=== PATIENT | male | born 1985 | race Caucasian/White ===

== ENCOUNTER → 2019-10-01 09:57 | Outpatient (CLI) | payer OTHER, SELFPAY ==
[2019-10-01 12:06] LABS: Coronavirus 19 IgG Antibody Negative (Negative); Coronavirus 19 IgM Antibody Negative (Negative)
== END ==
PROVIDERS: PCP Internal Medicine; Visit Provider Internal Medicine Gastroenterology
DX: Z01.818 Encounter for other preprocedural examination (principal)
CPT/HCPCS: 36415; 86328

== ENCOUNTER 2019-10-02 10:21 | Day surgery (SDC) | payer OTHER, SELFPAY ==
[2019-09-29 13:54] VITALS: BMI 38.0
[2019-10-02] VITALS (9 sets, daily range): BP systolic 95–134; BP diastolic 59–85; PULSE 64–94; RESP 16–18; TEMP 36.5–36.9; O2SAT 95–100
--- NOTE | 2019-10-02 11:59 | HMH.ANESCL ---
[facility] Anesthesia Checklist - Patient Identification Patient Identification: Arm Band - Structural Data Admitted From: Home Planned Operative Procedure/s: colonoscopy Consent for Planned Operative Procedure(s) Verified: Yes Verified Documents: Surgical Consent, History and Physical - NPO Status Verified Time NPO: 00:00 - Additional verifications Anesthesia Reactions: No - Airway Assessment C-Spine Mobility Assessed: Yes (mp3) TMJ Mobility Assessed: Yes Dentition: Good Dentition - Neurological Assessment Level of Consciousness: Awake, Alert - Anesthesia Plan Anesthesia Risk discussed: Yes Anesthesia Plan: Verified ASA Class: II Anesthesia Type: MAC [facility] History I have reviewed the patient's past medical history: Yes Medical History: Reports:: Hypertension Denies:: Cancer, Diabetes Mellitus Type 1, Diabetes Mellitus Type 2, Internal Pacemaker, MRSA, Seizures *Have you ever received a pneumonia vaccine?: No *Have you received a flu vaccine this season?: No Anesthesia experience/problems:: nac Other Surgeries: Yes: Other. No: Pacemaker Amputation: No Fractures: No - *Social History Last grade of school completed: High school graduate Smoking Status: Never smoker Alcohol Intake: current Alcohol Intake Frequency:: a few times a week Substance Use Type: denies use *Occupational Status:: employed Housing: house Household Members: spouse, family *Travel in the last 8 weeks: None Family Hx:: Cancer
--- NOTE | 2019-10-02 12:18 | HMH.PROC ---
[facility] Procedure Note Procedure Note:: Colonoscopy Procedure Report: Colonoscopy with cold snare polypectomy and cold biopsies Endoscopist: Bharat Aiken II, MD Referring physician: Mckay Villatoro MD Date of Procedure: October 02, 2019 Equipment: Olympus 180 variable stiffness pediatric colonoscope Sedation: MAC sedation Indication: Mr. Wadsworth is a 33-year-old gentleman who has had 3 bouts of diverticulitis over the last 6 to 8 months. These are occurring every 2 or 3 months. This will start out with symptomatic pain and mid right lower quadrant but radiate into the left lower quadrant. He reports no fever. He often does get diarrhea with each bout of diverticulitis. He did have some bright red rectal bleeding at the time of his last bout. He did have a CAT scan of the abdomen on August 12, 2019 and there was evidence of acute diverticulitis involving the descending colon. There was no complicated diverticulitis (no abscess, free fluid or pneumoperitoneum). There was a small inguinal hernia. There was some left renal cortical scarring. The patient does state that his father had colon cancer at the age of 58. This is his first colonoscopy. Procedure: Prior to the procedure, a history and physical exam was performed, and patient's medications and allergies were reviewed. The risks, benefits and alternatives of the sedation and procedure were discussed with the patient. All questions were answered and informed consent was obtained. The patient was brought to the procedure room. Patient identification and proposed procedure were verified by the physician and the nurse. The patient was placed in a left lateral decubitus position and the scope was passed under direct vision. Throughout the procedure, the patient's blood pressure, pulse, and oxygen saturations were monitored continuously. The colonoscopy was accomplished without difficulty. The patient tolerated the procedure well. Findings: On digital rectal examination there was normal rectal tone. There were no external hemorrhoids. The colonoscope was introduced through the anal canal to the rectum and advanced to the cecum. The ileocecal valve and appendiceal orifice were identified. The scope was advanced a short distance into the ileum. There was some ileal patchy aphthous erosions and edema and biopsies were taken from the ileum. The scope was then withdrawn into the colon. The cecum and ascending colon were grossly normal. There was a 5 mm polyp in the transverse colon removed via cold snare polypectomy. There were scattered diverticuli throughout the colon but more predominantly in the descending and sigmoid colon (LEFT colon). There was some haustral edema in the descending/sigmoid colon suggestive of mild chronic diverticulitis. The rectum itself was normal. Upon retroflexion within the rectum there were grade 1-2 internal hemorrhoids. The preparation was excellent throughout with [place] Preparation Score of 9. The cecal time was 12 minutes. Impression: 1. Transverse colon polyp 2. Pandiverticulosis with evidence of mild chronic left-sided diverticulitis 3. Grade 1-2 internal hemorrhoids 4. Acute/chronic ileitis Plan: I will follow-up the polyp histology and biopsies. I would recommend surveillance colonoscopy every 5 years based upon his family history and the present adenomatous colon polyp. I do feel that the patient has uncomplicated diverticulitis but he has had 3 bouts of diverticulitis in less than a year. We will discuss need for surgery. I would strongly encourage dietary measures and fiber bulk supplementation on a maintenance basis ([place]).
== END 2019-10-02 13:20 | disposition home or self-care (01) ==
PROVIDERS: PCP Internal Medicine; Visit Provider Internal Medicine Gastroenterology
PROC: 0DJD8ZZ Inspection of Lower Intestinal Tract, Via Natural or Artificial Opening Endoscopic (ICD-10-PCS; CPT 45378; principal; 2019-10-02 11:00)
DX: K63.5 Polyp of colon (principal); K57.92 Diverticulitis of intestine, part unspecified, without perforation or abscess without bleeding; K57.30 Diverticulosis of large intestine without perforation or abscess without bleeding; K64.0 First degree hemorrhoids; K52.89 Other specified noninfective gastroenteritis and colitis; Z80.0 Family history of malignant neoplasm of digestive organs; I10 Essential (primary) hypertension; Z87.39 Personal history of other diseases of the musculoskeletal system and connective tissue; Z79.899 Other long term (current) drug therapy
CPT/HCPCS: 45385; 45380

== ENCOUNTER 2024-12-03 06:21 | Day surgery (SDC) | payer BC, SELFPAY ==
[2024-11-27 10:12] VITALS: BMI 46.6
--- NOTE | 2024-12-01 17:13 | EXP.HP ---
History of Present Illness *Admission Date: 12/03/24 *Reason for visit:: Personal history of adenomatous colon polyps and family history of colon ca *History of present illness: Mr. Wadsworth is a 39-year-old gentleman who is here for screening/surveillance colonoscopy secondary to a personal history of an adenomatous colon polyp (transverse colon) identified and removed at the time of his colonoscopy in September 2019. The patient's father had colon cancer at the age of 58. He has had uncomplicated diverticulitis in the past. The examination is deemed medically necessary for screening/surveillance colonoscopy. The patient has been seen, interviewed and examined prior to the procedure by both myself and the anesthesia provider. [facility] Disclaimer: The information contained in this section may have been updated after the patient was seen, as this information can be updated by other users. Medical History Diverticulosis Crohn's disease Abnormal colonoscopy Hypertension Surgical History H/O neck surgery Family History Father Colon cancer Family history of diabetes mellitus type II Mother Family history of cancer Family/Other Family history of glaucoma Grandfather Leukemia Social History (Updated 12/03/24 @ 07:06 by Ericka Hutton RN) Smoking Status: Never smoker alcohol intake: current alcohol intake frequency: a few times a week substance use type: denies use current occupational status: employed Travel in the last 8 weeks?: None household members: spouse and family housing: house current occupation: [employer] caffeine: Yes Have you lived/traveled outside [place] in past 30 days?: No Contact w/someone who lives/traveled outside US past 30 days?: No Exposure to someone with infectious disease in past 14 days?: No Do you have a fever (greater than 100.4 F or 38 C)?: No Have you tested positive for COVID-19?: No Exposed to someone with COVID-19 in past 14 days?: No Do you have a sore throat?: No Do you have a cough?: No Do you have any weakness?: No Are you experiencing any nausea/vomitting?: No Do you have any diarrhea?: No Are you experiencing any unusual bleeding?: No Do you have any muscle aches/pain?: No Do you have any abdominal pain?: No Are you experiencing loss of taste or smell?: No Other Medical History Have you received the Flu Vaccine for this season: No Have you received the Pneumonia Vaccine: No Review of Systems Review of Systems Review of systems (narrative): Negative *Cardiovascular Comments: Negative *Gastrointestinal Comments: Negative *Genitourinary Comments: Negative *Musculoskeletal Comments: Negative *Neurologic Comments: Negative Meds Home Medications and Allergies Home Medications ?Medication ?Instructions ?Recorded ?Confirmed ?Type sodium,potassium,mag sulfates 17.5 See Rx Instructions PO .COMPLEX 11/19/24 12/03/24 Rx gram-3.13 gram-1.6 gram oral soln #354 mL (Suprep Bowel Prep Kit) ciprofloxacin HCl 500 mg tablet 500 mg PO BID 12/01/24 12/03/24 History (Cipro) nebivolol 10 mg tablet 10 mg PO DAILY 12/01/24 12/03/24 History testosterone 1.62 % (20.25 mg/1.25 2 packet transdermal DAILY 12/01/24 12/03/24 History gram) transdermal gel packet New Prescriptions to Start Prescriptions: Allergies Allergy/AdvReac Type Severity Reaction Status Date / Time celecoxib (From Celebrex) Allergy Nausea Verified 12/03/24 07:03 Exam *Routine HEENT Exam Head: Present normocephalic Eye: Present EOMI and PERRL ENT: Present mucous membranes moist *Routine Neck Exam Neck: Present supple *Routine Respiratory Exam Respiratory: Present CTA bilaterally *Routine Cardiovascular Exam Cardiovascular: Present RRR *Routine Abdominal Exam Abdominal: Present soft and normoactive bowel sounds; Absent tenderness *Routine Rectal Exam Rectal:: deferred *Routine Genitalia Exam Genitalia:: deferred *Routine Extremities Exam Extremities: Absent cyanosis, clubbing or edema *Routine Skin Exam Skin: Present warm; Absent rash *Routine Neurological Exam Neurological: Present alert and oriented X3 Assessment and Plan *Assessment and plan (1) Personal history of adenomatous and serrated colon polyps: Status: Acute Category: Medical Code(s): Z86.0101 - Personal history of adenomatous and serrated colon polyps (2) Family history of colon cancer in father: Status: Acute Category: Medical Code(s): Z80.0 - Family history of malignant neoplasm of digestive organs Plan A/P: 1. Personal history of adenomatous colon polyp and family history of colon cancer (father) is the preprocedural diagnosis. The patient will be anesthetized/sedated using MAC sedation. The patient has been seen and examined. Cardiac and lung assessment prior to the examination is stable. Proceed with planned screening/surveillance colonoscopy.
[2024-12-03 07:05] VITALS: BP 161/91; PULSE 55; RESP 16; TEMP 36.2; O2SAT 97
[2024-12-03] MEDS: LACTATED RINGERS 1000ML 1,000 ML 50 ML IV (07:13)
--- NOTE | 2024-12-03 07:18 | EXP.ANES.CKL ---
[facility] Disclaimer: The information contained in this section may have been updated after the patient was seen, as this information can be updated by other users. Medical History Diverticulosis Crohn's disease Abnormal colonoscopy Hypertension Surgical History H/O neck surgery Family History Father Colon cancer Family history of diabetes mellitus type II Mother Family history of cancer Family/Other Family history of glaucoma Grandfather Leukemia Social History (Updated 12/03/24 @ 07:06 by Ericka Hutton RN) Smoking Status: Never smoker alcohol intake: current alcohol intake frequency: a few times a week substance use type: denies use current occupational status: employed Travel in the last 8 weeks?: None household members: spouse and family housing: house current occupation: [employer] caffeine: Yes Have you lived/traveled outside US in past 30 days?: No Contact w/someone who lives/traveled outside [place] past 30 days?: No Exposure to someone with infectious disease in past 14 days?: No Do you have a fever (greater than 100.4 F or 38 C)?: No Have you tested positive for COVID-19?: No Exposed to someone with COVID-19 in past 14 days?: No Do you have a sore throat?: No Do you have a cough?: No Do you have any weakness?: No Are you experiencing any nausea/vomitting?: No Do you have any diarrhea?: No Are you experiencing any unusual bleeding?: No Do you have any muscle aches/pain?: No Do you have any abdominal pain?: No Are you experiencing loss of taste or smell?: No [facility] Anesthesia Checklist Patient Identification Patient Identification: Arm Band and Verbal (Name & ) Structural Data Admitted From: Home Planned Operative Procedure/s: colonoscopy Consent for Planned Operative Procedure(s) Verified: Yes Verified Documents: Surgical Consent NPO Status Verified Time NPO: 00:00 Additional verifications Anesthesia Reactions: No Airway Assessment Mallampati Score:: Class II C-Spine Mobility Assessed: Yes TMJ Mobility Assessed: Yes Neurological Assessment Level of Consciousness: Awake, Alert and Appropriate Hx Seizures: No Numbness or tingling in extremities: No Anesthesia Plan Anesthesia Risk discussed: Yes Anesthesia Plan: Verified ASA Class: III Anesthesia Type: MAC
--- NOTE | 2024-12-03 07:22 | HMH.PROCNOTE ---
[facility] Procedure Note Date: 12/03/24 Time: 07:41 Procedure Note:: Colonoscopy Procedure Report: Colonoscopy with cold snare polypectomy Endoscopist: Bharat Aiken II, MD Referring physician: Mckay Villatoro MD Date of Procedure: December 03, 2024 Equipment: Olympus [id number] adult colonoscope Sedation: MAC sedation Indication: Mr. Wadsworth is a 39-year-old gentleman who is here for screening/surveillance colonoscopy secondary to a personal history of an adenomatous colon polyp (transverse colon) identified and removed at the time of his colonoscopy in September 2019. The patient's father had colon cancer at the age of 58. He has had uncomplicated diverticulitis in the past. The patient does state that he has had more diarrhea recently and some bilateral lower abdominal discomfort. He reports no gassiness but does have bloating. He reports no rectal bleeding or weight loss. He does have to clearly watch his diet. Procedure: Prior to the procedure, a history and physical exam was performed, and patient's medications and allergies were reviewed. The risks, benefits and alternatives of the sedation and procedure were discussed with the patient. All questions were answered and informed consent was obtained. The patient was brought to the procedure room. Patient identification and proposed procedure were verified by the physician and the nurse. The patient was placed in a left lateral decubitus position and the scope was passed under direct vision. Throughout the procedure, the patient's blood pressure, pulse, and oxygen saturations were monitored continuously. The colonoscopy was accomplished without difficulty. The patient tolerated the procedure well. Findings: On digital rectal examination there was normal rectal tone. There were no external hemorrhoids. The prostate was 2+, smooth, soft, symmetric without nodules. The colonoscope was introduced through the anal canal to the rectum and advanced to the cecum. The ileocecal valve and appendiceal orifice were identified. The scope was advanced a short distance into the ileum which appeared grossly normal. The scope was then withdrawn into the colon. There was a single 4 mm polyp in the ascending colon removed via cold snare polypectomy. There were scattered diverticuli throughout the colon but more predominantly in the descending and sigmoid colon (LEFT colon). The rectum itself was normal. Upon retroflexion within the rectum there were grade 1-2 internal hemorrhoids. The preparation was excellent throughout with [place] Preparation Score of 9. The cecal time was 12 minutes. Impression: 1. Diminutive ascending colon polyp (4 mm) 2. Pandiverticulosis 3. Grade 1-2 internal hemorrhoids Plan: I will follow-up the polyp histology and recommend repeat screening/surveillance colonoscopy again in 5 years based upon adenomatous polyps at a young age and his family history. The patient does have diverticular disease and a history of recurrent uncomplicated diverticulitis. We will discussed dietary measures, bulking fiber and additional treatment options.
[2024-12-03 07:46] VITALS: BP 137/82; PULSE 84; RESP 18; TEMP 36.1; O2SAT 97
[2024-12-03 07:56] VITALS: BP 146/92; PULSE 68; RESP 18; TEMP 36.1; O2SAT 96
[2024-12-03 08:06] VITALS: BP 157/91; PULSE 68; RESP 18; TEMP 36.1; O2SAT 98
[2024-12-03 08:16] VITALS: BP 162/92; PULSE 58; RESP 18; TEMP 36.1; O2SAT 98
== END 2024-12-03 08:34 | disposition home or self-care (01) ==
PROVIDERS: PCP Internal Medicine; Visit Provider Internal Medicine Gastroenterology
PROC: 0DJD8ZZ Inspection of Lower Intestinal Tract, Via Natural or Artificial Opening Endoscopic (ICD-10-PCS; CPT 45378; principal; 2024-12-03 08:00)
DX: Z12.11 Encounter for screening for malignant neoplasm of colon (principal); D12.2 Benign neoplasm of ascending colon; K64.0 First degree hemorrhoids; K64.1 Second degree hemorrhoids; K57.30 Diverticulosis of large intestine without perforation or abscess without bleeding; K57.92 Diverticulitis of intestine, part unspecified, without perforation or abscess without bleeding; K50.90 Crohn's disease, unspecified, without complications; I10 Essential (primary) hypertension; Z79.899 Other long term (current) drug therapy; Z79.890 Hormone replacement therapy; Z86.0101 Personal history of adenomatous and serrated colon polyps; Z80.0 Family history of malignant neoplasm of digestive organs; Z88.8 Allergy status to other drugs, medicaments and biological substances
CPT/HCPCS: 45385; J2003; J2704; J7120